=== PATIENT | female | born 1945 | race Caucasian/White ===

== ENCOUNTER 2019-12-29 11:55 | Emergency (ER) | payer OTHER, BC ==
[2019-12-29 12:01] VITALS: BP 124/82; PULSE 87; TEMP 98.1; BMI 34.5
[2019-12-29] MEDS ORDERED: KETOROLAC TROMETHAMINE 30 MG/1 ML VIAL IM ONE (12:47)
[2019-12-29] MEDS ORDERED: KETOROLAC TROMETHAMINE 30 MG/1 ML VIAL ONE (12:55)
== END 2019-12-29 13:54 | disposition home or self-care (01) ==
LOC: JERFT 11:55
PROC: 3E023GC Introduction of Other Therapeutic Substance into Muscle, Percutaneous Approach (ICD-10-PCS; principal; 2019-12-29)
PROC: 2W39X1Z Immobilization of Left Upper Extremity using Splint (ICD-10-PCS; principal; 2019-12-29)
DX: S62.102A Fracture of unspecified carpal bone, left wrist, initial encounter for closed fracture (principal); W19.XXXA Unspecified fall, initial encounter
CPT/HCPCS: 29105; 73110-TC-LT-FY; 73130-TC-LT-FY; 96372; 99284-25

== ENCOUNTER 2020-01-06 12:32 | Day surgery (SDC) | payer OTHER, BC ==
[2020-01-01 18:07] VITALS: BMI 34.5
[2020-01-06] MEDS ORDERED: MIDAZOLAM HCL 2 MG/2 ML SINGLE DOSE VIAL ONE (14:17)
[2020-01-06] MEDS ORDERED: ROPIVACAINE HCL 0.5% 30ML VIAL ONE (14:18)
[2020-01-06] MEDS ORDERED: PROPOFOL 20 ML ONE ×3 (15:23→16:35)
[2020-01-06] MEDS ORDERED: ceFAZolin SODIUM 1 GM VIAL ONE (16:12)
[2020-01-06] MEDS ORDERED: ONDANSETRON 4 MG/2 ML VIAL ONE (16:12)
[2020-01-06] MEDS ORDERED: GUM MASTIC/STORAX/MSAL/ALCOHOL 1 DRP DROPSBTL MC ONE (16:39)
[2020-01-06] MEDS ORDERED: oxyCODONE HCL 5 MG TABLET PO PRN (17:21)
[2020-01-06] MEDS ORDERED: LACTATED RINGERS SOLUTION 1,000 ML IV SCH (17:30)
[2020-01-06 17:39] VITALS: TEMP 98.2
[2020-01-06 18:34] VITALS: BP 145/77; PULSE 77
--- NOTE | 2020-01-06 18:42 | OP ---
DATE OF OPERATION: 01/06/2020 PREOPERATIVE DIAGNOSIS: Left comminuted intraarticular displaced distal radius and distal radial shaft fracture. POSTOPERATIVE DIAGNOSIS: Left comminuted intraarticular displaced distal radius and distal radial shaft fracture. OPERATIVE PROCEDURE: 1. Open reduction, internal fixation of left comminuted intraarticular displaced distal radius and distal radial shaft fracture. 2. Left brachioradialis tenotomy. SURGEON: Kaleigh Medina MD. CONGRESSIONAL ASSISTANT: EWELINA Ross. ANESTHESIA: Regional and general anesthesia. COMPLICATIONS: None. ESTIMATED BLOOD LOSS: Minimal. INDICATION FOR PROCEDURE: The patient is a 75-year-old female with the above findings, indicated for operative treatment. Risks, benefits, and alternatives were discussed with her at length. Proper informed consent was obtained. PROCEDURE: After proper identification of the patient and correct operative site, patient was brought to the operating room and placed supine with all bony prominences well padded. General and regional anesthesia was given. Left upper extremity was prepped and draped in the usual sterile fashion. Intravenous antibiotics were given. Timeout procedure was performed. Esmarch bandage to exsanguinate the left upper extremity. Tourniquet inflated to 250 mmHg. Longitudinal incision made over the flexor carpi radialis tendon. Incision taken sharply through the skin with sharp and blunt dissection of the subcutaneous tissues. Flexor carpi radialis tendon along with contents of the carpal canal now bluntly and gently retracted in an ulnarward direction for the remainder of the procedure. Pronator quadratus was divided off the distal radius, and a highly comminuted displaced fracture of the distal radius was noted. There was a transverse fracture across the articular surface along oblique fracture going from the ulnar to the distal radius and twisting volarly and exiting around the distal radial shaft diaphysis. Fracture was attempted to be reduced; however the pole of the brachioradialis made this impossible; therefore a brachioradialis tenotomy was necessary and performed in a subperiosteal fashion. Once this was done, the shaft was able to be realigned, and temporarily held with K-wires. The articular surface was then reconstructed and reapproximated for the remainder of the shaft. This was also held temporarily with K-wires. A long Arthrex distal radius locking plate was then placed and held proximally with bicortical screws, and distally with locking screws. This provided secure, stable fixation of the fracture confirmed by radiographs as well as visually. The distal radial ulnar joints and scapholunate intervals were stressed; there was no instability. Full range of motion was achieved without any instability of the fracture sites. The wound was irrigated and repaired in layers including pronator quadratus with 4-0 Vicryl and 4-0 nylon sutures. Sterile dressings were placed. The patient was reversed from anesthesia and brought to the recovery room in stable condition. She tolerated the procedure well. True Hyde, the circulation assistant, was integral throughout the procedure. Procedure could not have been performed without a skilled operative circulation assistant. He was critical in holding the reduction while temporary and permanent fixation was placed, and this procedure could not have been performed without a skilled operative circulation assistant. KALEIGH MEDINA M.D. [id number]
== END 2020-01-06 18:36 | disposition home or self-care (01) ==
LOC: FASU 12:32
PROVIDERS: ATTEND Orthopaedic Surgery Hand Surgery
PROC: 0PSJ04Z Reposition Left Radius with Internal Fixation Device, Open Approach (ICD-10-PCS; 2020-01-06)
PROC: 0LN60ZZ Release Left Lower Arm and Wrist Tendon, Open Approach (ICD-10-PCS; 2020-01-06)
PROC: 0PSJ04Z Reposition Left Radius with Internal Fixation Device, Open Approach (ICD-10-PCS; principal; 2020-01-06 15:38)
DX: S52.532A Colles' fracture of left radius, initial encounter for closed fracture (principal); S52.352A Displaced comminuted fracture of shaft of radius, left arm, initial encounter for closed fracture; X58.XXXA Exposure to other specified factors, initial encounter; Y93.9 Activity, unspecified; Y92.9 Unspecified place or not applicable
CPT/HCPCS: 25290; 25515; 25608; C1713; 73110-TC-LT-FY; 73130-TC-LT-FY

== ENCOUNTER 2022-02-26 04:38 | Day surgery (SDC) | payer OTHER, BC ==
[2022-02-21 14:40] VITALS: BMI 37.2
[2022-02-26] MEDS ORDERED: ceFAZolin SODIUM 1 GM VIAL IVPB ONE (10:40)
[2022-02-26] MEDS ORDERED: PROPOFOL 20 ML ONE ×2 (10:43→10:52)
[2022-02-26] MEDS ORDERED: KETOROLAC TROMETHAMINE 30 MG/1 ML VIAL ONE (10:53)
[2022-02-26] MEDS ORDERED: ceFAZolin SODIUM 1 GM VIAL ONE (10:53)
[2022-02-26] MEDS ORDERED: DEXAMETHASONE SOD PHOSPHATE 4 MG/1 ML VIAL ONE (10:53)
[2022-02-26] MEDS ORDERED: LIDOCAINE HCL/PF 2% SDV 5ML VIAL ONE (10:53)
[2022-02-26] MEDS ORDERED: oxyCODONE HCL 5 MG TABLET PO PRN ×2 (11:00)
[2022-02-26] MEDS ORDERED: LACTATED RINGERS SOLUTION 1,000 ML IV SCH (11:00)
[2022-02-26] MEDS ORDERED: ONDANSETRON 4 MG/2 ML VIAL IVPUSH PRN (11:00)
[2022-02-26 13:07] VITALS: RESP 18; TEMP 97.7
[2022-02-26 14:54] VITALS: BP 137/77; PULSE 81
== END 2022-02-26 14:20 | disposition home or self-care (01) ==
LOC: JASU-SURG 04:38
PROVIDERS: ATTEND Obstetrics & Gynecology
PROC: 0UB98ZX Excision of Uterus, Via Natural or Artificial Opening Endoscopic, Diagnostic (ICD-10-PCS; 2022-02-26)
PROC: 0UDB7ZX Extraction of Endometrium, Via Natural or Artificial Opening, Diagnostic (ICD-10-PCS; 2022-02-26)
PROC: 0UB98ZZ Excision of Uterus, Via Natural or Artificial Opening Endoscopic (ICD-10-PCS; principal; 2022-02-26 10:00)
DX: N95.0 Postmenopausal bleeding (principal); D25.0 Submucous leiomyoma of uterus
CPT/HCPCS: 88305-TC; 94760

== ENCOUNTER 2023-09-09 14:32 | Inpatient (IN) | payer OTHER, BC ==
[2023-09-09] MEDS ORDERED: dilTIAZem HCL 125 MG/25 ML - 25 ML VIAL ONE ×3 (16:06→18:25)
[2023-09-09] MEDS: dilTIAZem HCL 50 MG/10 ML - 10 ML VIAL IVPUSH ONE ×2 (16:12→18:30)
[2023-09-09 16:47] LABS: BASO % 0.2 % (0-2.0); EOS % 0.1 % (0-4.5); HEMATOCRIT 44.1 % (32.4-45.2); HEMOGLOBIN 14.6 GM/dL (10.7-15.3); LYMPH % 5.4 % (8-40); MCHC 33.2 g/dl (32.0-36.0); MEAN CELL VOLUME 93.5 fl (80-96); MEAN PLT VOLUME 10.2 fl (7.5-11.1); MONO % 6.4 % (3.8-10.2); NEUT % 87.9 % (42.8-82.8); PLATELET COUNT 168 10^3/uL (134-434); RBC 4.71 M/mm3 (3.60-5.2); RDW 15.4 % (11.6-15.6); WHITE BLOOD COUNT 9.7 K/mm3 (4.0-10.0)
[2023-09-09] MEDS: SODIUM CHLORIDE 1,000 ML IV SCH (16:53)
[2023-09-09 16:55] LABS: INR 1.41 (0.83-1.09); PROTHROMBIN TIME (PATIENT) 16.3 SEC (9.7-13.0)
[2023-09-09 16:57] LABS: ACTIVATED PTT 24.4 SECONDS (25.2-36.5)
[2023-09-09] MEDS ORDERED: TENECTEplase 50 MG VIAL IVPUSH ONE ×2 (17:04→17:07)
[2023-09-09] MEDS: TENECTEplase 50 MG VIAL IVPUSH ONE (17:26)
[2023-09-09] MEDS: SODIUM CHLORIDE 1,000 ML IV STA (17:26)
[2023-09-09 17:35] LABS: POTASSIUM 3.7 mmol/L (3.5-5.1)
[2023-09-09 17:37] LABS: CALCIUM 9.3 mg/dL (8.5-10.1)
[2023-09-09 17:38] LABS: ALBUMIN 3.1 g/dl (3.4-5.0); BLOOD UREA NITROGEN 14.5 mg/dL (7-18)
[2023-09-09 17:42] LABS: BILIRUBIN,TOTAL 1.5 mg/dL (0.2-1); TOT PROT 6.3 g/dl (6.4-8.2)
[2023-09-09] MEDS ORDERED: ACETAMINOPHEN 325 MG TABLET (FP) PO PRN (17:50)
[2023-09-09] MEDS: INSULIN ASPART SLIDING SCALE (NOVOLOG) 1 VIAL SQ SCH (18:30)
[2023-09-09] MEDS ORDERED: oxyCODONE HCL 5 MG TABLET ONE (18:38)
[2023-09-09] MEDS ORDERED: AMIODARONE IN DEXTROSE,ISO-OSM 150 MG/100 ML BAG ONE (20:42)
[2023-09-09] MEDS ORDERED: FUROSEMIDE 40 MG/4 ML INJECTABLE VIAL ONE (20:56)
[2023-09-09 20:59] LABS: HEMATOCRIT 42.5 % (32.4-45.2); HEMOGLOBIN 14.1 GM/dL (10.7-15.3); MCHC 33.1 g/dl (32.0-36.0); MEAN CELL VOLUME 93.6 fl (80-96); MEAN PLT VOLUME 10.8 fl (7.5-11.1); PLATELET COUNT 171 10^3/uL (134-434); RBC 4.54 M/mm3 (3.60-5.2); RDW 15.8 % (11.6-15.6); WHITE BLOOD COUNT 11.2 K/mm3 (4.0-10.0)
[2023-09-09 21:06] LABS: N-TERMINAL BNP 3760.1 pg/ml (5-450)
[2023-09-09] MEDS: AMIODARONE IN DEXTROSE,ISO-OSM 150 MG/100 ML BAG IVPB ONE (21:13)
[2023-09-09] MEDS: AMIODARONE IN DEXTROSE,ISO-OSM 360 MG/200 ML BAG IV SCH (21:14)
[2023-09-09] MEDS: FUROSEMIDE 40 MG/4 ML INJECTABLE VIAL IVPUSH ONE (21:15)
[2023-09-09] MEDS: CHLORHEXIDINE GLUCONATE 4% CLEANSER FOR DECOLONIZATION TP SCH (21:15)
[2023-09-09] MEDS: MUPIROCIN 2% TOPICAL OINTMENT FOR DECOLONIZATION NS SCH (21:25)
[2023-09-09] MEDS: MAGNESIUM SULFATE IN WATER 2 GM/50 ML IVPB IVPB ONE (21:52)
[2023-09-09 22:36] LABS: EPI CELLS 7 /uL (0-25.1); HYALINE CASTS 5 /uL (0-3.1); URINE APPEARANCE CLOUDY; URINE BACTERIA >9,000 /uL (0-1359); URINE BILIRUBIN NEGATIVE (NEGATIVE); URINE COLOR DK YELLOW; URINE GLUCOSE (UA) NEGATIVE (NEGATIVE); URINE KETONE NEGATIVE (NEGATIVE); URINE LEUK ESTERASE NEGATIVE (NEGATIVE); URINE NITRITE POSITIVE (NEGATIVE); URINE PROTEIN TRACE (NEGATIVE); URINE RBC 113 /uL (0-23.9)
[2023-09-09 22:38] LABS: URINE CRYSTALS FEW /hpf; URINE WBC 122.2 /uL (0-25.8)
[2023-09-09] MEDS: METOPROLOL TARTRATE 5 MG/5 ML VIAL IVPUSH ONE (23:57)
[2023-09-10 07:25] LABS: HEMATOCRIT 42.5 % (32.4-45.2); HEMOGLOBIN 14.2 GM/dL (10.7-15.3); MCH 31.2 pg (25.7-33.7); MCHC 33.4 g/dl (32.0-36.0); MEAN CELL VOLUME 93.6 fl (80-96); MEAN PLT VOLUME 10.5 fl (7.5-11.1); PLATELET COUNT 152 10^3/uL (134-434); RBC 4.54 M/mm3 (3.60-5.2); RDW 15.9 % (11.6-15.6); WHITE BLOOD COUNT 9.6 K/mm3 (4.0-10.0)
[2023-09-10 08:07] LABS: POTASSIUM 3.4 mmol/L (3.5-5.1)
[2023-09-10 08:14] LABS: ALBUMIN 3.1 g/dl (3.4-5.0); CALCIUM 9.9 mg/dL (8.5-10.1)
[2023-09-10 08:15] LABS: BLOOD UREA NITROGEN 13.8 mg/dL (7-18); MAGNESIUM 2.4 mg/dL (1.8-2.4)
[2023-09-10 08:18] LABS: CREATININE 0.9 mg/dL (0.55-1.3)
[2023-09-10 08:20] LABS: BILIRUBIN,TOTAL 0.9 mg/dL (0.2-1); TOT PROT 6.1 g/dl (6.4-8.2)
[2023-09-10] MEDS: KCL 10 MEQ IVPB 10 MEQ/100 ML INFUS.BAG IVPB SCH (09:15)
[2023-09-10] MEDS: AMIODARONE IN DEXTROSE,ISO-OSM 360 MG/200 ML BAG IV SCH (09:30)
[2023-09-10] MEDS: DIGOXIN 0.5 MG/2 ML AMPUL IVPUSH ONE ×3 (11:15→23:22)
[2023-09-10] MEDS ORDERED: METOPROLOL TARTRATE 5 MG/5 ML VIAL IVPUSH ONE (11:30)
[2023-09-10] MEDS: METOPROLOL TARTRATE 5 MG/5 ML VIAL IVPUSH PRN (12:00)
[2023-09-10] MEDS ORDERED: METOPROLOL TARTRATE 5 MG/5 ML VIAL IVPUSH PRN (12:27)
[2023-09-10] MEDS: SODIUM CHLORIDE 250 ML IV STA (12:49)
[2023-09-10] MEDS: CEFTRIAXONE 1 GM in DEXTROSE 5%-WATER - 50 ML IVPB ONE (14:24)
[2023-09-10] MEDS ORDERED: ACETAMINOPHEN 325 MG TABLET (FP) PO PRN (16:14)
[2023-09-11 07:08] LABS: HEMATOCRIT 39.6 % (32.4-45.2); MCH 30.6 pg (25.7-33.7); MCHC 32.8 g/dl (32.0-36.0); MEAN CELL VOLUME 93.3 fl (80-96); MEAN PLT VOLUME 10.2 fl (7.5-11.1); PLATELET COUNT 111 10^3/uL (134-434); RBC 4.24 M/mm3 (3.60-5.2); RDW 15.4 % (11.6-15.6); WHITE BLOOD COUNT 6.6 K/mm3 (4.0-10.0)
[2023-09-11 07:41] LABS: POTASSIUM 3.8 mmol/L (3.5-5.1)
[2023-09-11 07:43] LABS: CALCIUM 8.6 mg/dL (8.5-10.1)
[2023-09-11 07:44] LABS: ALBUMIN 2.7 g/dl (3.4-5.0); BLOOD UREA NITROGEN 12.4 mg/dL (7-18); MAGNESIUM 1.8 mg/dL (1.8-2.4)
[2023-09-11 07:46] LABS: CREATININE 0.6 mg/dL (0.55-1.3)
[2023-09-11 07:47] LABS: PHOSPHOROUS 1.8 mg/dL (2.5-4.9)
[2023-09-11 07:48] LABS: TOT PROT 5.4 g/dl (6.4-8.2)
[2023-09-11] MEDS: MAGNESIUM SULF 50% (8.12 MEQ/2 ML-1 GM VIAL) IVPB ONE (08:32)
[2023-09-11] MEDS: INSULIN ASPART SLIDING SCALE (NOVOLOG) 1 VIAL SQ SCH ×3 (09:31→17:04)
[2023-09-11] MEDS ORDERED: APIXABAN 5 MG TABLET PO SCH (10:00)
[2023-09-11] MEDS ORDERED: ASPIRIN COATED 81 MG TABLET.EC PO SCH (10:00)
[2023-09-11] MEDS: POTASSIUM PHOSPHATE 30 MM in DEXTROSE 5%-WATER - 250 ML IVPB ONE (10:10)
[2023-09-11] MEDS: CEFTRIAXONE 1 GM in DEXTROSE 5%-WATER - 50 ML IVPB SCH (10:11)
[2023-09-11] MEDS: HEPARIN NA (PORCINE) 5,000 UNITS/ML 1ML VIAL SQ SCH (13:10)
[2023-09-11] MEDS: ASPIRIN 81 MG CHEWABLE TABLETS PO SCH (13:10)
[2023-09-11] MEDS: DIGOXIN 0.25 MG TABLET PO SCH (17:38)
[2023-09-11] MEDS ORDERED: ATORVASTATIN CA 40 MG TABLET (FP) PO SCH (22:00)
[2023-09-11] MEDS: ATORVASTATIN CA 40 MG TABLET (FP) PO SCH (22:22)
[2023-09-12 06:40] LABS: HEMATOCRIT 41.7 % (32.4-45.2); HEMOGLOBIN 14.1 GM/dL (10.7-15.3); MCH 31.3 pg (25.7-33.7); MCHC 33.7 g/dl (32.0-36.0); MEAN CELL VOLUME 92.9 fl (80-96); MEAN PLT VOLUME 9.8 fl (7.5-11.1); PLATELET COUNT 130 10^3/uL (134-434); RBC 4.49 M/mm3 (3.60-5.2); RDW 15.6 % (11.6-15.6); WHITE BLOOD COUNT 6.7 K/mm3 (4.0-10.0)
[2023-09-12 07:00] LABS: POTASSIUM 4.1 mmol/L (3.5-5.1)
[2023-09-12 07:04] LABS: CALCIUM 9.1 mg/dL (8.5-10.1)
[2023-09-12 07:05] LABS: ALBUMIN 2.7 g/dl (3.4-5.0); BLOOD UREA NITROGEN 9.5 mg/dL (7-18); MAGNESIUM 1.9 mg/dL (1.8-2.4)
[2023-09-12 07:08] LABS: BILIRUBIN,TOTAL 1.5 mg/dL (0.2-1); CREATININE 0.5 mg/dL (0.55-1.3); PHOSPHOROUS 1.8 mg/dL (2.5-4.9)
[2023-09-12 07:10] LABS: TOT PROT 5.8 g/dl (6.4-8.2)
[2023-09-12] MEDS: MAGNESIUM 2GM/50ML STERILE WATER IVPB IVPB ONE (08:29)
[2023-09-12] MEDS: NAPH,MB-DB/K PH,MBDB POWDER PACKET PO ONE (08:30)
[2023-09-12] MEDS: FUROSEMIDE 40 MG/4 ML INJECTABLE VIAL IVPUSH ONE (09:45)
[2023-09-12 09:51] LABS: BILIRUBIN,DIRECT 0.5 mg/dL (0.0-0.2)
[2023-09-12] MEDS ORDERED: ACETAMINOPHEN 325 MG TABLET (FP) PO PRN (23:19)
[2023-09-12] MEDS: METOPROLOL TARTRATE 5 MG/5 ML VIAL IVPUSH PRN (23:44)
[2023-09-13] MEDS: HEPARIN NA (PORCINE) 5,000 UNITS/ML 1ML VIAL SQ SCH (05:44)
[2023-09-13] MEDS: INSULIN ASPART SLIDING SCALE (NOVOLOG) 1 VIAL SQ SCH (06:14)
[2023-09-13 08:21] LABS: HEMOGLOBIN 14.7 GM/dL (10.7-15.3); MCH 31.4 pg (25.7-33.7); MCHC 34.2 g/dl (32.0-36.0); MEAN PLT VOLUME 9.8 fl (7.5-11.1); PLATELET COUNT 153 10^3/uL (134-434); RBC 4.67 M/mm3 (3.60-5.2); RDW 15.5 % (11.6-15.6); WHITE BLOOD COUNT 5.6 K/mm3 (4.0-10.0)
[2023-09-13 09:07] LABS: CALCIUM 9.4 mg/dL (8.5-10.1)
[2023-09-13 09:08] LABS: ALBUMIN 2.9 g/dl (3.4-5.0); BLOOD UREA NITROGEN 6.7 mg/dL (7-18); MAGNESIUM 2.2 mg/dL (1.8-2.4)
[2023-09-13 09:11] LABS: CREATININE 0.5 mg/dL (0.55-1.3); PHOSPHOROUS 1.6 mg/dL (2.5-4.9)
[2023-09-13] MEDS: metoPROLOL SUCCINATE 25 MG TAB.SR.24H (FP) PO SCH (09:26)
[2023-09-13] MEDS: ASPIRIN 81 MG CHEWABLE TABLETS PO SCH (09:29)
[2023-09-13] MEDS: DIGOXIN 0.25 MG TABLET PO SCH (09:30)
[2023-09-13] MEDS ORDERED: MUPIROCIN 2% TOPICAL OINTMENT FOR DECOLONIZATION NS SCH (10:00)
[2023-09-13] MEDS ORDERED: CHLORHEXIDINE GLUCONATE 4% CLEANSER FOR DECOLONIZATION TP SCH (22:00)
[2023-09-14] MEDS: ATORVASTATIN CA 40 MG TABLET (FP) PO SCH (00:36)
[2023-09-14 07:36] LABS: HEMATOCRIT 42.7 % (32.4-45.2); HEMOGLOBIN 14.3 GM/dL (10.7-15.3); MCH 30.8 pg (25.7-33.7); MCHC 33.4 g/dl (32.0-36.0); MEAN CELL VOLUME 92.1 fl (80-96); MEAN PLT VOLUME 9.8 fl (7.5-11.1); PLATELET COUNT 167 10^3/uL (134-434); RBC 4.64 M/mm3 (3.60-5.2); RDW 15.2 % (11.6-15.6); WHITE BLOOD COUNT 5.7 K/mm3 (4.0-10.0)
[2023-09-14 07:54] LABS: POTASSIUM 4.1 mmol/L (3.5-5.1)
[2023-09-14 08:02] LABS: ALBUMIN 2.8 g/dl (3.4-5.0); BLOOD UREA NITROGEN 9.5 mg/dL (7-18); PHOSPHOROUS 1.6 mg/dL (2.5-4.9)
[2023-09-14 08:03] LABS: BILIRUBIN,TOTAL 1.9 mg/dL (0.2-1); TOT PROT 5.8 g/dl (6.4-8.2)
[2023-09-14 08:04] LABS: CALCIUM 9.7 mg/dL (8.5-10.1)
[2023-09-14 08:05] LABS: CREATININE 0.4 mg/dL (0.55-1.3)
[2023-09-14] MEDS: ASPIRIN COATED 81 MG TABLET.EC PO SCH (09:43)
[2023-09-14 14:12] VITALS: RESP 20
[2023-09-15] MEDS: APIXABAN 5 MG TABLET PO SCH (00:07)
[2023-09-15 07:56] LABS: BASO % 0.9 % (0-2.0); EOS % 4.7 % (0-4.5); HEMATOCRIT 45.5 % (32.4-45.2); LYMPH % 22.3 % (8-40); MCH 30.3 pg (25.7-33.7); MCHC 32.8 g/dl (32.0-36.0); MEAN CELL VOLUME 92.2 fl (80-96); MEAN PLT VOLUME 9.5 fl (7.5-11.1); MONO % 11.2 % (3.8-10.2); NEUT % 60.9 % (42.8-82.8); PLATELET COUNT 164 10^3/uL (134-434); RBC 4.94 M/mm3 (3.60-5.2); RDW 15.2 % (11.6-15.6); WHITE BLOOD COUNT 5.9 K/mm3 (4.0-10.0)
[2023-09-15 08:29] LABS: CALCIUM 9.5 mg/dL (8.5-10.1)
[2023-09-15 08:30] LABS: BLOOD UREA NITROGEN 8.3 mg/dL (7-18); MAGNESIUM 1.9 mg/dL (1.8-2.4)
[2023-09-15 08:34] LABS: CREATININE 0.4 mg/dL (0.55-1.3); PHOSPHOROUS 1.6 mg/dL (2.5-4.9)
[2023-09-15 08:35] LABS: TOT PROT 5.9 g/dl (6.4-8.2)
[2023-09-15] MEDS: metoPROLOL SUCCINATE 25 MG TAB.SR.24H (FP) PO SCH (10:03)
[2023-09-15 15:15] VITALS: BMI 30.8
[2023-09-15 15:47] VITALS: BP 130/80; PULSE 98; TEMP 97.9
== END 2023-09-15 16:11 | DRG 64 ==
LOC: JER 14:32 → JERBED 17:40 → JICU 20:10 → J4W 09-12 21:36
PROVIDERS: ADMIT Internal Medicine Pulmonary Disease; ATTEND Internal Medicine
DX: I63.89 Other cerebral infarction (principal); I50.21 Acute systolic (congestive) heart failure; J96.01 Acute respiratory failure with hypoxia; I69.354 Hemiplegia and hemiparesis following cerebral infarction affecting left non-dominant side; N39.0 Urinary tract infection, site not specified; R29.710 NIHSS score 10; I48.91 Unspecified atrial fibrillation; E78.5 Hyperlipidemia, unspecified; R42 Dizziness and giddiness; R47.01 Aphasia; B96.20 Unspecified Escherichia coli [E. coli] as the cause of diseases classified elsewhere; I69.391 Dysphagia following cerebral infarction; R13.19 Other dysphagia; E83.39 Other disorders of phosphorus metabolism
CPT/HCPCS: 0241U-QW; 36415; 70450-TC; 70496-TC; 70498-TC; 71045-TC-FY; 80048; 80053; 80061; 80162; 81003; 82248; 82550; 82962; 83036; 83735; 83880; 84100; 84436; 84443; 84484; 85025; 85027; 85610; 85730; 86850; 86900; 86901; 87086; 87186; 87635; 93005; 93010; 93306-TC; 97116-GP; 97161-GP; 99285-25; J0282; J1644; J3101

== ENCOUNTER 2023-09-17 21:19 | Inpatient (IN) | payer OTHER, BC ==
[2023-09-17 23:43] LABS: BASO % 0.5 % (0-2.0); EOS % 3.7 % (0-4.5); HEMATOCRIT 50.1 % (32.4-45.2); HEMOGLOBIN 16.8 GM/dL (10.7-15.3); LYMPH % 18.5 % (8-40); MCH 30.8 pg (25.7-33.7); MCHC 33.5 g/dl (32.0-36.0); MEAN CELL VOLUME 91.8 fl (80-96); MONO % 11.4 % (3.8-10.2); NEUT % 65.9 % (42.8-82.8); PLATELET COUNT 206 10^3/uL (134-434); RBC 5.45 M/mm3 (3.60-5.2); RDW 15.6 % (11.6-15.6); WHITE BLOOD COUNT 6.2 K/mm3 (4.0-10.0)
[2023-09-17 23:56] LABS: INR 1.42 (0.83-1.09); PROTHROMBIN TIME (PATIENT) 16.4 SEC (9.7-13.0)
[2023-09-17 23:59] LABS: ACTIVATED PTT 29.7 SECONDS (25.2-36.5)
[2023-09-18 00:39] LABS: ALBUMIN 3.4 g/dl (3.4-5.0); BILIRUBIN,TOTAL 1.9 mg/dL (0.2-1); BLOOD UREA NITROGEN 13.3 mg/dL (7-18); CALCIUM 10.1 mg/dL (8.5-10.1); CREATININE 0.6 mg/dL (0.55-1.3); POTASSIUM 5.3 mmol/L (3.5-5.1); TOT PROT 6.9 g/dl (6.4-8.2)
[2023-09-18] MEDS ORDERED: HEPARIN NA (PORCINE) 5,000 UNITS/ML 1ML VIAL IVPUSH PRN (02:19)
[2023-09-18] MEDS: HEPARIN INFUSION - 25,000 UNITS/500 ML INFUS.BAG IVPB SCH (03:25)
[2023-09-18] MEDS: HEPARIN NA (PORCINE) 5,000 UNITS/ML 1ML VIAL IVPUSH ONE (03:25)
[2023-09-18 04:41] LABS: POTASSIUM 4.6 mmol/L (3.5-5.1)
[2023-09-18 04:43] LABS: ALBUMIN 3.1 g/dl (3.4-5.0); CALCIUM 9.7 mg/dL (8.5-10.1)
[2023-09-18 04:44] LABS: BLOOD UREA NITROGEN 12.2 mg/dL (7-18)
[2023-09-18 04:46] LABS: CREATININE 0.6 mg/dL (0.55-1.3)
[2023-09-18 04:48] LABS: BILIRUBIN,TOTAL 1.8 mg/dL (0.2-1); TOT PROT 6.2 g/dl (6.4-8.2)
[2023-09-18] MEDS ORDERED: ACETAMINOPHEN 325 MG TABLET (FP) PO PRN (07:05)
[2023-09-18 10:14] LABS: ALBUMIN 3.2 g/dl (3.4-5.0); BILIRUBIN,TOTAL 1.6 mg/dL (0.2-1); BLOOD UREA NITROGEN 10.7 mg/dL (7-18); CALCIUM 10.1 mg/dL (8.5-10.1); CREATININE 0.5 mg/dL (0.55-1.3); MAGNESIUM 1.9 mg/dL (1.8-2.4); PHOSPHOROUS 1.8 mg/dL (2.5-4.9); POTASSIUM 4.1 mmol/L (3.5-5.1); TOT PROT 6.2 g/dl (6.4-8.2)
[2023-09-18] MEDS ORDERED: metoPROLOL SUCCINATE 25 MG TAB.SR.24H (FP) PO ONE (12:43)
[2023-09-18] MEDS ORDERED: DIGOXIN 0.25 MG TABLET ONE (12:43)
[2023-09-18] MEDS ORDERED: FAMOTIDINE 20 MG TABLET ONE (12:43)
[2023-09-18] MEDS: DIGOXIN 0.25 MG TABLET PO SCH (12:54)
[2023-09-18] MEDS: FAMOTIDINE 20 MG TABLET PO SCH (12:54)
[2023-09-18] MEDS: metoPROLOL SUCCINATE 25 MG TAB.SR.24H (FP) PO SCH (12:54)
[2023-09-18 21:30] VITALS: BMI 37.3
[2023-09-18] MEDS: ATORVASTATIN CA 80 MG TABLET (FP) PO SCH (22:40)
[2023-09-19 08:14] LABS: POTASSIUM 3.9 mmol/L (3.5-5.1)
[2023-09-19 08:24] LABS: CALCIUM 9.7 mg/dL (8.5-10.1)
[2023-09-19 08:25] LABS: BLOOD UREA NITROGEN 7.9 mg/dL (7-18)
[2023-09-19 08:28] LABS: BILIRUBIN,TOTAL 1.5 mg/dL (0.2-1); CREATININE 0.4 mg/dL (0.55-1.3); TOT PROT 5.9 g/dl (6.4-8.2)
[2023-09-19] MEDS: HEPARIN NA (PORCINE) 5,000 UNITS/ML 1ML VIAL IVPUSH PRN (09:41)
[2023-09-19] MEDS: FUROSEMIDE 40 MG TABLET (FP) PO SCH (14:17)
[2023-09-19] MEDS: ENOXAPARIN NA (PORCINE) 100 MG/1 ML DISP.SYRIN SQ SCH (20:32)
[2023-09-20 08:20] LABS: POTASSIUM 4.2 mmol/L (3.5-5.1)
[2023-09-20 08:25] LABS: ALBUMIN 2.9 g/dl (3.4-5.0); BLOOD UREA NITROGEN 7.2 mg/dL (7-18); MAGNESIUM 2.1 mg/dL (1.8-2.4)
[2023-09-20 08:29] LABS: CREATININE 0.5 mg/dL (0.55-1.3)
[2023-09-20 08:30] LABS: BILIRUBIN,TOTAL 1.4 mg/dL (0.2-1); TOT PROT 5.9 g/dl (6.4-8.2)
[2023-09-20 16:05] LABS: URINE APPEARANCE CLEAR; URINE BILIRUBIN NEGATIVE (NEGATIVE); URINE COLOR YELLOW; URINE GLUCOSE (UA) NEGATIVE (NEGATIVE); URINE KETONE NEGATIVE (NEGATIVE); URINE LEUK ESTERASE NEGATIVE (NEGATIVE); URINE NITRITE NEGATIVE (NEGATIVE); URINE PROTEIN NEGATIVE (NEGATIVE)
[2023-09-20] MEDS: METOPROLOL TARTRATE 50 MG TABLET (FP) PO SCH (21:33)
[2023-09-21 08:47] LABS: BASO % 0.9 % (0-2.0); EOS % 4.1 % (0-4.5); HEMATOCRIT 45.4 % (32.4-45.2); HEMOGLOBIN 15.2 GM/dL (10.7-15.3); LYMPH % 22.1 % (8-40); MCH 30.7 pg (25.7-33.7); MCHC 33.5 g/dl (32.0-36.0); MEAN CELL VOLUME 91.6 fl (80-96); MEAN PLT VOLUME 9.4 fl (7.5-11.1); MONO % 12.6 % (3.8-10.2); NEUT % 60.3 % (42.8-82.8); PLATELET COUNT 210 10^3/uL (134-434); RBC 4.95 M/mm3 (3.60-5.2); RDW 15.8 % (11.6-15.6); WHITE BLOOD COUNT 6.1 K/mm3 (4.0-10.0)
[2023-09-21 08:57] LABS: POTASSIUM 3.3 mmol/L (3.5-5.1)
[2023-09-21 09:01] LABS: CALCIUM 10.3 mg/dL (8.5-10.1); MAGNESIUM 1.9 mg/dL (1.8-2.4)
[2023-09-21 09:02] LABS: CREATININE 0.6 mg/dL (0.55-1.3)
[2023-09-21 09:04] LABS: BILIRUBIN,TOTAL 1.5 mg/dL (0.2-1); TOT PROT 6.2 g/dl (6.4-8.2)
[2023-09-21 09:05] LABS: BLOOD UREA NITROGEN 10.8 mg/dL (7-18)
[2023-09-21] MEDS: METOPROLOL TARTRATE 50 MG TABLET (FP) PO SCH (21:02)
[2023-09-22 07:52] LABS: POTASSIUM 3.3 mmol/L (3.5-5.1)
[2023-09-22 07:58] LABS: ALBUMIN 2.9 g/dl (3.4-5.0); BLOOD UREA NITROGEN 11.6 mg/dL (7-18); CALCIUM 10.3 mg/dL (8.5-10.1); MAGNESIUM 1.8 mg/dL (1.8-2.4)
[2023-09-22 08:01] LABS: CREATININE 0.6 mg/dL (0.55-1.3)
[2023-09-22 08:03] LABS: BILIRUBIN,TOTAL 1.2 mg/dL (0.2-1)
[2023-09-22 08:05] LABS: TOT PROT 5.8 g/dl (6.4-8.2)
[2023-09-22 08:27] LABS: BASO % 1.2 % (0-2.0); EOS % 4.7 % (0-4.5); HEMATOCRIT 47.5 % (32.4-45.2); HEMOGLOBIN 15.5 GM/dL (10.7-15.3); LYMPH % 26.9 % (8-40); MCH 30.3 pg (25.7-33.7); MCHC 32.7 g/dl (32.0-36.0); MEAN CELL VOLUME 92.8 fl (80-96); MEAN PLT VOLUME 9.8 fl (7.5-11.1); MONO % 12.9 % (3.8-10.2); NEUT % 54.3 % (42.8-82.8); PLATELET COUNT 179 10^3/uL (134-434); RBC 5.12 M/mm3 (3.60-5.2); RDW 15.9 % (11.6-15.6); WHITE BLOOD COUNT 5.7 K/mm3 (4.0-10.0)
[2023-09-22] MEDS: POTASSIUM CHLORIDE ORAL LIQUID 20 MEQ/15 ML PO ONE (10:47)
[2023-09-23 08:14] LABS: POTASSIUM 4.1 mmol/L (3.5-5.1)
[2023-09-23 08:17] LABS: CALCIUM 10.4 mg/dL (8.5-10.1)
[2023-09-23 08:18] LABS: ALBUMIN 3.2 g/dl (3.4-5.0); BLOOD UREA NITROGEN 13.6 mg/dL (7-18); MAGNESIUM 1.8 mg/dL (1.8-2.4)
[2023-09-23 08:21] LABS: CREATININE 0.6 mg/dL (0.55-1.3)
[2023-09-23 08:22] LABS: BILIRUBIN,TOTAL 1.2 mg/dL (0.2-1)
[2023-09-23 08:23] LABS: TOT PROT 6.3 g/dl (6.4-8.2)
[2023-09-23 08:49] LABS: EOS % 3.8 % (0-4.5); HEMATOCRIT 48.6 % (32.4-45.2); HEMOGLOBIN 16.1 GM/dL (10.7-15.3); LYMPH % 23.4 % (8-40); MCH 30.9 pg (25.7-33.7); MCHC 33.1 g/dl (32.0-36.0); MEAN CELL VOLUME 93.2 fl (80-96); MEAN PLT VOLUME 10.1 fl (7.5-11.1); MONO % 12.4 % (3.8-10.2); NEUT % 59.4 % (42.8-82.8); PLATELET COUNT 194 10^3/uL (134-434); RBC 5.22 M/mm3 (3.60-5.2); RDW 16.1 % (11.6-15.6); WHITE BLOOD COUNT 6.7 K/mm3 (4.0-10.0)
[2023-09-23 18:53] VITALS: RESP 18
[2023-09-24 08:13] LABS: BASO % 1.5 % (0-2.0); EOS % 3.7 % (0-4.5); HEMATOCRIT 50.2 % (32.4-45.2); HEMOGLOBIN 16.5 GM/dL (10.7-15.3); LYMPH % 24.3 % (8-40); MCH 30.6 pg (25.7-33.7); MCHC 32.8 g/dl (32.0-36.0); MEAN CELL VOLUME 93.3 fl (80-96); MEAN PLT VOLUME 9.6 fl (7.5-11.1); MONO % 11.2 % (3.8-10.2); NEUT % 59.3 % (42.8-82.8); PLATELET COUNT 191 10^3/uL (134-434); RBC 5.38 M/mm3 (3.60-5.2); RDW 16.4 % (11.6-15.6); WHITE BLOOD COUNT 6.6 K/mm3 (4.0-10.0)
[2023-09-24 15:31] VITALS: TEMP 97.8
[2023-09-24 18:48] VITALS: BP 116/70; PULSE 81
== END 2023-09-24 20:08 | DRG 299 ==
LOC: JER 21:19 → JERBED 09-18 02:21 → J4S 09-18 20:16
PROVIDERS: ADMIT Internal Medicine; ATTEND Nurse Practitioner Acute Care
DX: I82.432 Acute embolism and thrombosis of left popliteal vein (principal); I26.99 Other pulmonary embolism without acute cor pulmonale; I50.22 Chronic systolic (congestive) heart failure; I48.19 Other persistent atrial fibrillation; J90 Pleural effusion, not elsewhere classified; I82.412 Acute embolism and thrombosis of left femoral vein; E78.5 Hyperlipidemia, unspecified; E66.9 Obesity, unspecified; Z68.37 Body mass index [BMI] 37.0-37.9, adult
CPT/HCPCS: 0241U-QW; 36415; 71275-TC; 80053; 80162; 81003; 83735; 83880; 84100; 84484; 85025; 85610; 85730; 93005; 93010; 93306-TC; 93970-TC; 97116-GP; 97161-GP; 99291; J1644; Q9967

== ENCOUNTER 2024-09-03 14:46 | Emergency (ER) | payer OTHER, BC ==
[2024-09-03 16:05] VITALS: BP 122/69; PULSE 85; RESP 16; TEMP 98.1; BMI 29.2
== END 2024-09-03 17:25 | disposition home or self-care (01) ==
LOC: JER 14:46
DX: I83.11 Varicose veins of right lower extremity with inflammation (principal); M79.89 Other specified soft tissue disorders
CPT/HCPCS: 99283-25